=== PATIENT | male | born 1970 | race Two or more races ===

== ENCOUNTER 2016-04-12 09:21 | Emergency (ER) | payer SELFPAY ==
[2016-04-12 10:32] LABS: ABSOLUTE NEUTROPHIL COUNT 4.4 K/mm3 (1.8-7.7); BASO % 0.6 % (0.2-1.0); EOS # 0.1 (0.0-0.5); EOS % 1.1 % (0.9-2.9); HEMATOCRIT 47.7 % (32.0-52.0); HEMOGLOBIN 15.8 gm/l (14.0-18.0); IMM NEUT% 0.2 % (0-1); LYMPH # 1.6 (1.0-4.8); LYMPH % 24.6 % (15-45); MEAN CELL VOLUME 88.5 fl (80.0-94.0); MEAN CORPUSCULAR HEMOGLOBIN 29.3 pg (27.0-31.0); MEAN CORPUSCULAR HGB CONC 33.1 g/dl (33.0-37.0); MEAN PLATELET VOLUME 10.2 fl (7.4-10.4); MONO # 0.4 (0.0-0.8); MONO % 6.4 % (4-12); NEUT % 67.1 % (43-75); PLATELET COUNT 211 K/mm3 (130-400)
--- NOTE | 2016-04-12 10:35 | RAD ---
CHEST - 2 VIEWS COMPARISON: Chest 2 views, 01/18/2013 HISTORY: Chest pain for several days. FINDINGS: Views: Frontal and lateral chest Lungs: Normal Heart and vessels: Normal Trachea and bronchi: Normal Mediastinum and avelino: Normal Costophrenic sulci: Normal Chest wall and bones: Normal. Upper abdomen: Normal. IMPRESSION: Negative 2 view chest.
[2016-04-12 10:45] LABS: ALB/GLOB RATIO 1.2 (>1.0); ALBUMIN 4.1 gm/dL (3.5-5.7); CALCIUM 9.8 mg/dL (8.6-10.3)
[2016-04-12 10:57] LABS: TROPONIN I 0.01 ng/ml (0.0-0.06)
[2016-04-12 11:01] LABS: CKMB ISOENZYME 2.1 ng/ml (0.6-6.3)
== END 2016-04-12 12:58 | disposition home or self-care (01) ==
LOC: ED 09:21
DX: R07.9 Chest pain, unspecified (principal); R42 Dizziness and giddiness